=== PATIENT | female | born 1970 | race Hispanic/Latino ===

== ENCOUNTER 2021-11-30 05:54 | Day surgery (SDC) | payer OTHER ==
[2021-11-26 15:30] VITALS: BP 142/76
[2021-11-26 16:06] LABS: BASOPHILS % (AUTO) 0.6 % (0.0-5.0); EOSINOPHILS % (AUTO) 0.7 % (0.0-8.0); HEMATOCRIT 44.7 % (36-48); MEAN CORPUSCULAR HEMOGLOBIN 28.9 pg (27.0-33.0); MEAN CORPUSCULAR HGB CONC 32.2 g/dL (32.0-36.0); MEAN CORPUSCULAR VOLUME 89.8 fL (79-99); MONOCYTES % (AUTO) 8.5 % (3.0-13.0); NEUTROPHILS % (AUTO) 61.7 % (40.0-77.0); PLATELET COUNT (AUTO) 283 K/uL (130-400); RED BLOOD CELL COUNT(AUTO) 4.98 MIL/uL (4.00-5.50); RED CELL DISTRIBUTION WIDTH 11.9 % (11.0-15.5); WHITE BLOOD COUNT (AUTO) 8.3 K/uL (4.8-10.8)
[2021-11-26 16:11] LABS: APPEARANCE,URINE Clear (CLEAR); BILIRUBIN,URINE Negative (NEGATIVE); COLOR,URINE Yellow (YELLOW); GLUCOSE, URINE (UA) Negative (NEGATIVE); KETONES,URINE Negative (NEGATIVE); LEUKOCYTE ESTERASE ,URINE Negative (NEGATIVE); NITRATE,URINE Negative (NEGATIVE); OCCULT BLOOD,URINE Negative (NEGATIVE); PH,URINE 6.5 (5.0-8.0); PROTEIN,URINE Negative (NEGATIVE); UROBILINOGEN,URINE 0.2 mg/dL (0.2-1.0)
[2021-11-26 16:23] LABS: INR 0.97 (0.85-1.15); PROTHROMBIN TIME 10.6 SEC (9.6-11.6)
[2021-11-26 16:24] LABS: CREATININE 0.6 mg/dL (0.5-1.5); PARTIAL THROMBOPLASTIN TIME 25.6 SEC (26.3-35.5); POTASSIUM 4.1 mmol/L (3.5-5.1)
[~2021-11-30] VITALS: Ht 172.7 cm; Wt 78.1 kg
[2021-11-30] VITALS (8 sets, daily range): BP systolic 115–133; BP diastolic 68–76
[~2021-11-30 05:54] MED LIST: DILT60TA3 PO
[2021-11-30] MEDS ORDERED: DiphenhydrAMINE HCL 50 MG/ML VIAL ONE (06:54)
[2021-11-30] MEDS ORDERED: MIDAZOLAM HCL 1 MG/ML 2ML VIAL ONE (07:08)
[2021-11-30] MEDS ORDERED: NITROGLYCERIN 50MG VIAL ONE (07:08)
[2021-11-30] MEDS ORDERED: IOHEXOL-350 75 ML VIAL IV ONE (07:08)
[2021-11-30] MEDS ORDERED: NICARDIPINE 25MG INJ IV ONE (07:08)
[2021-11-30] MEDS ORDERED: HEPARIN 10,000 UNIT/10ML (1,000 UNIT/ML) VIAL ONE (07:08)
[2021-11-30] MEDS ORDERED: FENTANYL CITRATE PF 50 MCG/1 ML 2ML VIAL ONE (07:09)
[2021-11-30] MEDS ORDERED: LIDOCAINE HCL 400MG/20ML VIAL ONE (07:09)
[2021-11-30] MEDS ORDERED: 0.9%NACL 1000ML 1,000 ML IV SCH ×2 (08:00→09:00)
[2021-11-30] MEDS ORDERED: DiphenhydrAMINE HCL 50 MG/ML VIAL IVP SCH (08:00)
[2021-11-30] MEDS ORDERED: IOHEXOL-350 50ML VIAL IV ONE (08:01)
== END 2021-11-30 11:55 | disposition home or self-care (01) ==
LOC: DAH 05:54
PROVIDERS: ATTEND Internal Medicine Interventional Cardiology
DX: R07.9 Chest pain, unspecified (principal); I34.0 Nonrheumatic mitral (valve) insufficiency; I10 Essential (primary) hypertension; Z90.710 Acquired absence of both cervix and uterus; Z79.899 Other long term (current) drug therapy; Z98.890 Other specified postprocedural states
CPT/HCPCS: 36415; 80048; 81003; 85025; 85610; 85730; 93005; 93460; A4215; A4216; A4221; A4222; A4223 ×3; A4606; A4663; C1760; C1894 ×3; J1200; J1644 ×2; J2250; J3010; J3490 ×3; J7030; Q9967 ×2; 99156; 99157

== ENCOUNTER 2022-03-10 06:23 | Day surgery (SDC) | payer OTHER ==
[2022-03-09 09:59] LABS: BASOPHILS % (AUTO) 0.6 % (0.0-5.0); EOSINOPHILS % (AUTO) 1.3 % (0.0-8.0); HEMATOCRIT 44.2 % (36-48); MEAN CORPUSCULAR HEMOGLOBIN 29.6 pg (27.0-33.0); MEAN CORPUSCULAR HGB CONC 33.7 g/dL (32.0-36.0); MEAN CORPUSCULAR VOLUME 87.9 fL (79-99); MONOCYTES % (AUTO) 8.9 % (3.0-13.0); NEUTROPHILS % (AUTO) 59.7 % (40.0-77.0); PLATELET COUNT (AUTO) 283 K/uL (130-400); RED BLOOD CELL COUNT(AUTO) 5.03 MIL/uL (4.00-5.50); RED CELL DISTRIBUTION WIDTH 11.8 % (11.0-15.5); WHITE BLOOD COUNT (AUTO) 6.2 K/uL (4.8-10.8)
[2022-03-09 10:11] LABS: CREATININE 0.6 mg/dL (0.5-1.5); POTASSIUM 4.2 mmol/L (3.5-5.1)
[2022-03-09 10:15] LABS: INR 0.94 (0.85-1.15); PROTHROMBIN TIME 10.3 SEC (9.6-11.6)
[2022-03-09 10:16] LABS: PARTIAL THROMBOPLASTIN TIME 25.2 SEC (26.3-35.5)
[2022-03-09 12:07] VITALS: BP 138/72
[~2022-03-10] VITALS: Ht 172.7 cm; Wt 76.2 kg
[2022-03-10] VITALS (20 sets, daily range): BP systolic 112–160; BP diastolic 63–103
[~2022-03-10 06:23] MED LIST changes: +VITAMIN C PO; +ZINC PO; +[UNRECOGNIZED DRUG - OTHER] PO
[2022-03-10] MEDS ORDERED: 0.9%NACL 1000ML 1,000 ML IV ONE (06:44)
[2022-03-10] MEDS ORDERED: LIDOCAINE HCL 2% VISCOUS 15 ML UDCUP ONE (08:28)
[2022-03-10] MEDS ORDERED: FLUMAZENIL 0.1MG/1ML 5ML VIAL IV ONE (08:28)
[2022-03-10] MEDS ORDERED: NALOXONE HCL 0.4 MG/1 ML ML ONE (08:29)
[2022-03-10] MEDS ORDERED: FENTANYL CITRATE PF 50 MCG/1 ML 2ML VIAL ONE (08:30)
[2022-03-10] MEDS ORDERED: MIDAZOLAM HCL 1 MG/ML 2ML VIAL ONE (08:30)
== END 2022-03-10 12:30 | disposition home or self-care (01) ==
LOC: DAH 06:23
PROVIDERS: ATTEND Internal Medicine Interventional Cardiology
DX: I08.1 Rheumatic disorders of both mitral and tricuspid valves (principal); I10 Essential (primary) hypertension; Z90.710 Acquired absence of both cervix and uterus; Z98.890 Other specified postprocedural states; Z79.899 Other long term (current) drug therapy; Z79.01 Long term (current) use of anticoagulants
CPT/HCPCS: 80048; 85025; 85610; 85730; 36415; 93325; 93312; A4223 ×3; J3010; J7030; J2250; A4215; A4657; A7002; A4222; A4221; A4663; A4606; 96365; 96374; 96375; 99152; J2310; J3490

== ENCOUNTER 2023-06-14 07:04 | Day surgery (SDC) | payer OTHER ==
[2023-06-12 13:04] LABS: BASOPHILS # (AUTO) 0.04 K/uL (0.00-0.20); BASOPHILS % (AUTO) 0.5 % (0.0-5.0); EOSINOPHILS # (AUTO) 0.08 K/uL (0.00-0.70); HEMATOCRIT 41.5 % (36-48); IMMATURE GRANULOCYTE ABSOLUTE 0.05 K/uL (0-1); LYMPHOCYTES # (AUTO) 2.2 K/uL (1.0-4.8); LYMPHOCYTES % (AUTO) 27.7 % (21.0-51.0); MEAN CORPUSCULAR HEMOGLOBIN 29.3 pg (27.0-33.0); MEAN CORPUSCULAR HGB CONC 32.5 g/dL (32.0-36.0); MONOCYTES # (AUTO) 0.7 K/uL (0.1-1.0); MONOCYTES % (AUTO) 9.1 % (3.0-13.0); NEUTROPHILS # (AUTO) 4.8 K/uL (1.8-7.7); NEUTROPHILS % (AUTO) 61.1 % (40.0-77.0); PLATELET COUNT (AUTO) 435 K/uL (130-400); RED BLOOD CELL COUNT(AUTO) 4.61 MIL/uL (4.00-5.50); RED CELL DISTRIBUTION WIDTH 11.8 % (11.0-15.5); WHITE BLOOD COUNT (AUTO) 7.9 K/uL (4.8-10.8)
[2023-06-12 13:13] LABS: CREATININE 0.7 mg/dL (0.5-1.5); POTASSIUM 4.3 mmol/L (3.5-5.1)
[2023-06-12 13:18] LABS: INR 1.12 (0.85-1.15); PROTHROMBIN TIME 12.9 SEC (9.6-11.6)
[2023-06-12 13:19] LABS: PARTIAL THROMBOPLASTIN TIME 34.5 SEC (26.3-35.5)
[2023-06-12 13:25] VITALS: BP 134/77; PULSE 87; RESP 18
[2023-06-14] VITALS (15 sets, daily range): BP systolic 104–149; BP diastolic 71–100; PULSE 84–107; RESP 14–19
[~2023-06-14] VITALS: Ht 170.2 cm; Wt 79.8 kg
[~2023-06-14 07:04] MED LIST changes: -DILT60TA3 PO; +METO-391 PO; +RIVA15TA PO; -VITAMIN C PO; -ZINC PO; -[UNRECOGNIZED DRUG - OTHER] PO
[2023-06-14] MEDS ORDERED: 0.9%NACL 1000ML 1,000 ML IV ONE (07:15)
[2023-06-14] MEDS ORDERED: LIDOCAINE HCL 2% VISCOUS 15 ML UDCUP ONE (08:08)
[2023-06-14] MEDS ORDERED: FENTANYL CITRATE PF 50 MCG/1 ML 2ML VIAL ONE (08:08)
[2023-06-14] MEDS ORDERED: MIDAZOLAM HCL 1 MG/ML 2ML VIAL ONE (08:09)
[2023-06-14] MEDS ORDERED: FLUMAZENIL 0.1MG/1ML 5ML VIAL IV ONE (08:09)
[2023-06-14] MEDS ORDERED: NALOXONE HCL 0.4 MG/1 ML ML ONE (08:09)
== END 2023-06-14 10:05 | disposition home or self-care (01) ==
LOC: DAH 07:04
PROVIDERS: ATTEND Student in an Organized Health Care Education/Training Program
DX: I48.0 Paroxysmal atrial fibrillation (principal); I37.1 Nonrheumatic pulmonary valve insufficiency; I49.3 Ventricular premature depolarization; I49.8 Other specified cardiac arrhythmias; I74.9 Embolism and thrombosis of unspecified artery; I10 Essential (primary) hypertension; E78.5 Hyperlipidemia, unspecified; Z79.01 Long term (current) use of anticoagulants; Z79.899 Other long term (current) drug therapy; Z98.891 History of uterine scar from previous surgery; Z98.890 Other specified postprocedural states; Z82.49 Family history of ischemic heart disease and other diseases of the circulatory system; Z82.3 Family history of stroke; Z80.1 Family history of malignant neoplasm of trachea, bronchus and lung
CPT/HCPCS: 80048; 85025; 85610; 85730; 36415; 93005; 93312; 93325; J3010; J7030; J2250; A4215; A4222; A4221; A4663; A4216 ×2; A4606; A4223 ×3; 99152; J2310; J3490; G0500